=== PATIENT | female | born 1950 | race Caucasian/White ===

== ENCOUNTER 2020-12-10 16:40 | Emergency (ER) | payer MEDICARE, OTHER ==
[2020-12-10] MEDS ORDERED: Sulfameth/Trimethoprim DS 800-160mg TAB ONE (17:14)
== END 2020-12-10 17:26 | disposition home or self-care (01) ==
LOC: NAV ERS 16:40
DX: L03.114 Cellulitis of left upper limb (principal); I10 Essential (primary) hypertension; E03.9 Hypothyroidism, unspecified; M19.90 Unspecified osteoarthritis, unspecified site; Z79.899 Other long term (current) drug therapy; W55.01XA Bitten by cat, initial encounter
CPT/HCPCS: 87070; 87077; 87205; 99283